=== PATIENT | male | born 2000 | race Hispanic/Latino ===

== ENCOUNTER 2021-04-12 07:14 | Emergency (ER) | payer MEDICAID ==
[~2021-04-12] VITALS: Ht 160 cm; Wt 86.2 kg
[2021-04-12 07:15] VITALS: BP 128/83
[2021-04-12] MEDS ORDERED: PENICILLIN V POTASSIUM 500 MG TABLET PO ONE (08:00)
[2021-04-12] MEDS ORDERED: KETOROLAC 60 MG VIAL (30MG/ML) IM ONE (08:00)
[2021-04-12] MEDS ORDERED: MORPHINE 4 MG SYG IM ONE (08:00)
[2021-04-12] MEDS ORDERED: PENI500T2 PO (08:07)
== END 2021-04-12 09:09 | disposition home or self-care (01) ==
LOC: EDH 07:14
DX: K02.9 Dental caries, unspecified (principal); K05.10 Chronic gingivitis, plaque induced; Z79.1 Long term (current) use of non-steroidal anti-inflammatories (NSAID)
CPT/HCPCS: 96372; 99283; J1885; J2270